=== PATIENT | female | born 1990 | race African-American/Black ===

== ENCOUNTER 2017-03-10 01:20 | Emergency (ER) | payer OTHER ==
[2017-03-10] MEDS ORDERED: ACETAMINOPHEN 325 MG TABLET PO ONE (02:12)
[2017-03-10] MEDS ORDERED: ACETAMINOPHEN 325 MG TABLET ONE (02:14)
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
[2017-03-10] MEDS ORDERED: DIAZEPAM 5 MG TABLET PO ONE (04:39)
[2017-03-10 04:50] VITALS: BP 126/72
== END 2017-03-10 04:45 | disposition home or self-care (01) ==
LOC: ER 01:20
DX: M79.604 Pain in right leg (principal); M54.2 Cervicalgia; V89.2XXA Person injured in unspecified motor-vehicle accident, traffic, initial encounter
CPT/HCPCS: 99283